=== PATIENT | female | born 1980 ===

== ENCOUNTER 2019-08-29 08:16 | Inpatient (IN) | payer BC ==
[~2019-08-29 08:16] MED LIST: Citric Acid/Sodium Citrate Solution 30 ML Cup PO ONE; Oxytocin/0.9 % Sodium Chloride 30 UNIT/500 ML BAG IV SCH; Sodium Chloride 0.9% 10 ML SDV IV PRN; Sodium Chloride 0.9% 10 ML Syringe FLUSH PRN; Sodium Chloride 0.9% 2.5 ML Syringe FLUSH PRN; ceFAZolin 2 GM in Premix Bag 1 BAG IV ONE
[2019-08-29] MEDS: Lactated Ringers 1,000 ML IV SCH ×3 (08:46→10:52)
[2019-08-29] MEDS ORDERED: Oxytocin 10 Units/1 ML SDV ONE (09:00)
[2019-08-29] MEDS ORDERED: Phenylephrine 1% 10 MG/ML SDV ONE (09:00)
[2019-08-29] MEDS ORDERED: Ondansetron 4 MG/2 ML SDV ONE (09:00)
[2019-08-29] MEDS ORDERED: Morphine PF 10 MG/10 ML SDV ONE (09:00)
[2019-08-29] MEDS ORDERED: ceFAZolin/Dextrose,Iso-Osmotic 2 GM/50 ML Duplex Bag IV ONE (09:00)
[2019-08-29] MEDS ORDERED: Ketorolac 30 MG/ML SDV ONE (09:06)
[2019-08-29] MEDS ORDERED: Citric Acid/Sodium Citrate Solution 30 ML Cup ONE (09:54)
--- NOTE | 2019-08-29 11:36 | PCM.PREANE ---
Preanesthetic Assessment - Anesthesia/Transfusion/Family Hx Anesthesia History: Prior Anesthesia Without Reaction Family History of Anesthesia Reaction: No Transfusion History: No Prior Transfusion(s) - Review of Systems General: No Symptoms Pulmonary: No Symptoms Cardiovascular: No Symptoms Gastrointestinal: No Symptoms Neurological: No Symptoms Other: Reports: None - Physical Assessment Height: 5 ft 8 in Weight: 77.111 kg ASA Class: 2 Mental Status: Alert & Oriented x3 Airway Class: Mallampati = 2 Dentition: Reports: Normal Dentition ROM/Head Extension: Full Lungs: Clear to Auscultation, Normal Respiratory Effort Cardiovascular: Regular Rate, Regular Rhythm - Lab Values: Laboratory Last Values WBC 8.12 K/uL (4.0-11.0) 08/28/19 16:15 RBC 4.19 M/uL (4.30-5.90) L 08/28/19 16:15 Hgb 11.5 g/dL (12.0-16.0) L 08/28/19 16:15 Hct 35.2 % (36.0-46.0) L 08/28/19 16:15 MCV 84.0 fL (80.0-98.0) 08/28/19 16:15 MCH 27.4 pg (27.0-32.0) 08/28/19 16:15 MCHC 32.7 g/dL (31.0-37.0) 08/28/19 16:15 RDW Std Deviation 40.5 fl (28.0-62.0) 08/28/19 16:15 RDW Coeff of Sonia 14 % (11.0-15.0) 08/28/19 16:15 Plt Count 157 K/uL (150-400) 08/28/19 16:15 MPV 11.40 fL (7.40-12.00) 08/28/19 16:15 Nucleated RBC % 0.0 /100WBC 08/28/19 16:15 Nucleated RBCs # 0 K/uL 08/28/19 16:15 Blood Type O POSITIVE 08/28/19 16:15 Antibody Screen POSITIVE 08/28/19 16:15 Prewarmed Antibody Srcn NEGATIVE 08/28/19 16:15 Antibody Identification Cancelled 08/28/19 16:15 Cold Antibody Screen POSITIVE 08/28/19 16:15 - Allergies Allergies/Adverse Reactions: Allergies Allergy/AdvReac Type Severity Reaction Status Date / Time No Known Allergies Allergy Verified 08/22/19 14:28 - Anesthesia Plan Pre-Op Medication Ordered: Antacids - Acknowledgements Anesthesia Type Planned: Spinal Pt an Appropriate Candidate for the Planned Anesthesia: Yes Alternatives and Risks of Anesthesia Discussed w Pt/Guardian: Yes Pt/Guardian Understands and Agrees with Anesthesia Plan: Yes Additional Comments: anes prob list: prior c/s Plan: spinal with intrathecal duramorph PreAnesthesia Questionnaire HEENT History: Reports: None Cardiovascular History: Reports: None Respiratory History: Reports: None Gastrointestinal History: Reports: None Genitourinary History: Reports: None 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: Musculoskeletal History: Reports: Fracture Other Musculoskeletal History: hx fx arm as a child Neurological History: Reports: None Psychiatric History: Reports: None Endocrine/Metabolic History: Reports: None Hematologic History: Reports: None Immunologic History: Reports: None Oncologic (Cancer) History: Reports: None Dermatologic History: Reports: None - Infectious Disease History Infectious Disease History: Reports: None - Past Surgical History Head Surgeries/Procedures: Reports: None HEENT Surgical History: Reports: None Cardiovascular Surgical History: Reports: None Respiratory Surgical History: Reports: None GI Surgical History: Reports: Hernia, Abdominal Female Surgical History: Reports: Section Endocrine Surgical History: Reports: None Neurological Surgical History: Reports: None Musculoskeletal Surgical History: Reports: None Oncologic Surgical History: Reports: None Dermatological Surgical History: Reports: None - SUBSTANCE USE Smoking Status *Q: Never Smoker Second Hand Smoke Exposure: No Recreational Drug Use History: No - HOME MEDS Home Medications: Home Meds . [No Known Home Meds] 08/22/19 [History] - CURRENT (IN HOUSE) MEDS Current Meds: Current Medications Lactated Ringer's (Ringers, Lactated) 1,000 mls @ 500 mls/hr IV BOLUS RAMEZ Last Admin: 08/29/19 10:52 Dose: 500 mls/hr Oxytocin/Sodium Chloride (Oxytocin 30 Unit/500 Ml-Ns) 30 unit in 500 mls @ 250 mls/hr IV TITRATE RAMEZ Sodium Chloride (Saline Flush) 10 ml FLUSH ASDIRECTED PRN PRN Reason: Keep Vein Open Sodium Chloride (Saline Flush) 2.5 ml FLUSH ASDIRECTED PRN PRN Reason: Keep Vein Open Sodium Chloride (Normal Saline) 10 ml IV ASDIRECTED PRN PRN Reason: IV Use Discontinued Medications Cefazolin Sodium/Dextrose (Ancef) Confirm Administered Dose 2 gm IV .STK-MED ONE Stop: 08/29/19 09:01 Citric Acid/Sodium Citrate (Bicitra Solution) 30 ml PO ONETIME ONE Stop: 08/28/19 15:47 Last Admin: 08/29/19 11:32 Dose: 30 ml Citric Acid/Sodium Citrate (Bicitra Solution) Confirm Administered Dose 30 ml .ROUTE .STK-MED ONE Stop: 08/29/19 09:55 Cefazolin Sodium/Dextrose 2 gm (/ Premix) 50 mls @ 100 mls/hr IV ONETIME ONE Stop: 08/28/19 16:15 Ketorolac Tromethamine (Toradol) Confirm Administered Dose 30 mg .ROUTE .STK- MED ONE Stop: 08/29/19 09:07 Morphine Sulfate (Duramorph Pf) Confirm Administered Dose 10 mg .ROUTE .STK-MED ONE Stop: 08/29/19 09:01 Ondansetron HCl (Zofran) Confirm Administered Dose 4 mg .ROUTE .STK-MED ONE Stop: 08/29/19 09:01 Oxytocin (Pitocin) Confirm Administered Dose 30 unit .ROUTE .STK-MED ONE Stop: 08/29/19 09:01 Phenylephrine HCl (Avery-Synephrine) Confirm Administered Dose 10 mg .ROUTE .STK- MED ONE Stop: 08/29/19 09:01
[2019-08-29] MEDS ORDERED: Octyl 2-Cyanoacrylate 1 Tube ONE (12:29)
[2019-08-29] MEDS ORDERED: Acetaminophen/oxyCODONE 325-5 MG Tab PO PRN (13:17)
[2019-08-29] MEDS ORDERED: Ondansetron 4 MG/2 ML SDV IVPUSH PRN (13:17)
[2019-08-29] MEDS ORDERED: Ibuprofen 800 MG Tab PO PRN (13:17)
[2019-08-29] MEDS ORDERED: diphenhydrAMINE 50 MG/ML SDV IVPUSH PRN (13:17)
[2019-08-29] MEDS ORDERED: Lanolin 100% Cream 7 GM Tube TOP PRN (13:17)
[2019-08-29] MEDS ORDERED: Bisacodyl 10 MG Supp RECTAL PRN (13:17)
--- NOTE | 2019-08-29 13:20 | PCM.LDHP ---
L&D History of Present Illness - General Date of Service: 08/29/19 Admit Problem/Dx: Patient Status Order with Admit Dx/Problem 08/28/19 15:46 Patient Status [ADT] Routine 08/29/19 13:17 Patient Status [ADT] Routine Admission Diagnosis/Problem Admission Diagnosis/Problem Source of Information: Patient History Limitations: Reports: No Limitations - History of Present Illness Improves with: Reports: None Worsens with: Reports: None Associated Symptoms: Reports: N - Related Data Allergies/Adverse Reactions: Allergies Allergy/AdvReac Type Severity Reaction Status Date / Time No Known Allergies Allergy Verified 08/22/19 14:28 Home Medications: Home Meds . 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: Reports: Fracture Other Musculoskeletal History: hx fx arm as a child Neurological History: Reports: None Psychiatric History: Reports: None Endocrine/Metabolic History: Reports: None Hematologic History: Reports: None Immunologic History: Reports: None Oncologic (Cancer) History: Reports: None Dermatologic History: Reports: None - Infectious Disease History Infectious Disease History: Reports: None - Past Surgical History Head Surgeries/Procedures: Reports: None HEENT Surgical History: Reports: None Cardiovascular Surgical History: Reports: None Respiratory Surgical History: Reports: None GI Surgical History: Reports: Hernia, Abdominal Female Surgical History: Reports: Section Endocrine Surgical History: Reports: None Neurological Surgical History: Reports: None Musculoskeletal Surgical History: Reports: None Oncologic Surgical History: Reports: None Dermatological Surgical History: Reports: None Social & Family History - Family History Cardiac: Reports: Hypertension Respiratory: Reports: None GI: Reports: None : Reports: None OBGYN: Reports: None Musculoskeletal: Reports: None Neurological: Reports: None Psychiatric: Reports: None Endocrine/Metabolic: Reports: None Hematologic: Reports: None Immunologic: Reports: None Dermatologic: Reports: None Oncologic: Reports: None - Tobacco Use Smoking Status *Q: Never Smoker Second Hand Smoke Exposure: No - Caffeine Use Caffeine Use: Reports: Coffee - Recreational Drug Use Recreational Drug Use: No Drug Use in Last 12 Months: No H&P Review of Systems - Review of Systems: Review Of Systems: See Below General: Reports: No Symptoms HEENT: Reports: No Symptoms Pulmonary: Reports: No Symptoms Cardiovascular: Reports: No Symptoms Gastrointestinal: Reports: No Symptoms Genitourinary: Reports: No Symptoms Musculoskeletal: Reports: No Symptoms Skin: Reports: No Symptoms Psychiatric: Reports: No Symptoms Neurological: Reports: No Symptoms Hematologic/Lymphatic: Reports: No Symptoms Immunologic: Reports: No Symptoms L&D Exam - Exam Exam: See Below - Vital Signs Weight: 77.111 kg - OB Specific Contraction Intensity: Mild Movement: Active Heart Tones: Present Presentation: Vertex - Exam General: Alert, Oriented HEENT: PERRLA, Conjunctiva Clear, EACs Clear, EOMI, Hearing Intact, Mucosa Moist & [place], Nares Patent, Normal Nasal Septum, Posterior Pharynx Clear, TMs Clear Neck: Supple, Trachea Midline Lungs: Clear to Auscultation, Normal Respiratory Effort Cardiovascular: Regular Rate, Regular Rhythm GI/Abdominal Exam: Normal Bowel Sounds, Soft, Non-Tender, No Organomegaly, No Distention, No Abnormal Bruit, No Mass, Pelvis Stable Rectal Exam: Normal Exam, Normal Rectal Tone Genitourinary: Normal external exam, Normal bimanual exam, Normal speculum exam Back Exam: Normal Inspection, Full Range of Motion Extremities: Normal Inspection, Normal Range of Motion, Non-Tender, No Pedal Edema, Normal Capillary Refill Skin: Warm, Dry, Intact Neurological: Cranial Nerves Intact, Reflexes Equal Bilateral Psychiatric: Alert, Normal Affect, Normal Mood - Patient Data Lab Results Last 24 hrs: Laboratory Results - last 24 hr 08/28/19 08/28/19 Range/Units 16:15 16:15 WBC 8.12 (4.0-11.0) K/uL RBC 4.19 L (4.30-5.90) M/uL Hgb 11.5 L (12.0-16.0) g/dL Hct 35.2 L (36.0-46.0) % MCV 84.0 (80.0-98.0) fL MCH 27.4 (27.0-32.0) pg MCHC 32.7 (31.0-37.0) g/dL RDW Std Deviation 40.5 (28.0-62.0) fl RDW Coeff of Sonia 14 (11.0-15.0) % Plt Count 157 (150-400) K/uL MPV 11.40 (7.40-12.00) fL Nucleated RBC % 0.0 /100WBC Nucleated RBCs # 0 K/uL Blood Type O POSITIVE Antibody Screen POSITIVE Prewarmed Antibody Srcn NEGATIVE Antibody Identification Cancelled Cold Antibody Screen POSITIVE Result Diagrams: 08/28/19 16:15 Problem List Initiated/Reviewed/Updated: Yes Orders Last 24hrs: Active Orders 24 hr Category Date Time Status Patient Status [ADT] Routine ADT 08/29/19 13:17 Ordered Ambulate [RC] PER UNIT ROUTINE Care 08/29/19 13:17 Ordered Antiembolic Devices [RC] PER UNIT ROUTINE Care 08/29/19 13:18 Ordered Communication Order [RC] PER UNIT ROUTINE Care 08/29/19 13:17 Ordered Communication Order [RC] PER UNIT ROUTINE Care 08/29/19 13:17 Ordered Communication Order [RC] Per Unit Routine Care 08/29/19 13:17 Ordered May Shower [RC] ASDIRECTED Care 08/29/19 13:17 Ordered Procedure Site Prep Instruct [RC] ASDIRECTED Care 08/28/19 15:46 Active RT Incentive Spirometry [RC] Q2HWA Care 08/29/19 13:17 Ordered Up ad Nikki [RC] ASDIRECTED Care 08/28/19 15:46 Active Vital Signs [RC] PER UNIT ROUTINE Care 08/28/19 15:46 Active Vital Signs [RC] PER UNIT ROUTINE Care 08/29/19 13:17 Ordered HEMOGLOBIN/HEMATOCRIT,HH [HEME] Timed Lab 08/30/19 05:11 Ordered Acetaminophen/oxyCODONE [Percocet 325-5 MG] Med 08/29/19 13:17 Ordered 1 tab PO Q4H PRN Acetaminophen/oxyCODONE [Percocet 325-5 MG] Med 08/29/19 13:17 Ordered 2 tab PO Q4H PRN Bisacodyl [Dulcolax] Med 08/29/19 13:17 Ordered 10 mg RECTAL ONETIME PRN Docusate Sodium [Colace] Med 08/29/19 21:00 Ordered 100 mg PO BID Ibuprofen [Motrin] Med 08/29/19 13:17 Ordered 800 mg PO Q8H PRN Ketorolac [Toradol] Med 08/29/19 13:30 Ordered 30 mg IVPUSH Q6H Lactated Ringers @ 125 MLS/HR(1000ml) Med 08/29/19 13:30 Ordered Lactated Ringers [Ringers, Lactated] 1,000 ml IV ASDIRECTED Lactated Ringers [Ringers, Lactated] 1,000 ml Med 08/28/19 16:00 Active IV BOLUS Lanolin [Lansinoh HPA] Med 08/29/19 13:17 Ordered See Dose Instructions TOP ASDIRECTED PRN Ondansetron [Zofran] Med 08/29/19 13:17 Ordered 4 mg IVPUSH Q4H PRN Oxytocin/0.9 % Sodium Chloride [Oxytocin 30 Unit/500 ML Med 08/28/19 16:00 Active -NS] 30 unit in 500 ml IV TITRATE Sodium Chloride 0.9% [Normal Saline] Med 08/28/19 15:46 Active 10 ml IV ASDIRECTED PRN Sodium Chloride 0.9% [Saline Flush] Med 08/28/19 15:46 Active 10 ml FLUSH ASDIRECTED PRN Sodium Chloride 0.9% [Saline Flush] Med 08/28/19 15:46 Active 2.5 ml FLUSH ASDIRECTED PRN diphenhydrAMINE [Benadryl] Med 08/29/19 13:17 Ordered 25 mg IVPUSH Q6H PRN Assess Lochia [WOMSER] Per Unit Routine Ot 08/29/19 13:17 Ordered Assess Uterine Involution [WOMSER] Per Unit Routine Oth 08/29/19 13:17 Ordered Breast Pump [WOMSER] Per Unit Routine Oth 08/29/19 13:17 Ordered Peripheral IV Discontinue [OM.PC] Routine Oth 08/29/19 13:17 Ordered Peripheral IV Insertion Adult [OM.PC] Routine Oth 08/28/19 15:46 Ordered Schedule Procedure [COMM] Per Unit Routine Oth 08/28/19 15:46 Ordered Sequential Compression Device [OM.PC] Per Unit Routine Ot 08/29/19 13:17 Ordered Resuscitation Status Routine Resus Stat 08/28/19 15:46 Ordered Medication Orders Lactated Ringer's (Ringers, Lactated) 1,000 mls @ 500 mls/hr IV BOLUS RAMEZ Last Admin: 08/29/19 10:52 Dose: 500 mls/hr Infusion: 08/29/19 10:38 Dose: 999 mls/hr Admin: 08/29/19 09:37 Dose: 999 mls/hr Infusion: 08/29/19 09:37 Dose: 999 mls/hr Admin: 08/29/19 08:46 Dose: 999 mls/hr Oxytocin/Sodium Chloride (Oxytocin 30 Unit/500 Ml-Ns) 30 unit in 500 mls @ 250 mls/hr IV TITRATE RAMEZ Sodium Chloride (Saline Flush) 10 ml FLUSH ASDIRECTED PRN PRN Reason: Keep Vein Open Sodium Chloride (Saline Flush) 2.5 ml FLUSH ASDIRECTED PRN PRN Reason: Keep Vein Open Sodium Chloride (Normal Saline) 10 ml IV ASDIRECTED PRN PRN Reason: IV Use
--- NOTE | 2019-08-29 13:21 | PCM.OPNOTE ---
- General Post-Op/Procedure Note Date of Surgery/Procedure: 08/29/19 Operative Procedure(s): Repeat C/section. Pre Op Diagnosis: [id number] previous C/section. Post-Op Diagnosis: Same Anesthesia Technique: Spinal Primary Surgeon: Ned Daniel EBL in mLs: 650 Complications: None Condition: Good
[2019-08-29] MEDS: Ketorolac 30 MG/ML SDV IVPUSH SCH ×2 (13:30→19:57)
[2019-08-29] MEDS ORDERED: Lactated Ringers 1,000 ML IV SCH (13:30)
--- NOTE | 2019-08-29 14:00 | OR ---
SURGEON: Ned Daniel MD DATE OF PROCEDURE: 08/29/2019 PREOPERATIVE DIAGNOSES: Intrauterine at 38 weeks, advanced maternal age, previous section, low lying placenta previa. POSTOPERATIVE DIAGNOSES: Intrauterine at 38 weeks, advanced maternal age, previous section, low lying placenta previa. OPERATION PERFORMED: Repeat low-transverse section. PRIMARY SURGEON: Ned Daniel MD. 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 ANESTHESIA: Spinal. ESTIMATED BLOOD LOSS: 650 mL. COMPLICATIONS: None. FINDINGS: A viable female fetus. score reported to be 8 and 9. Normal uterus, tubes, and ovaries. INDICATIONS: The patient is a 39-year-old. She had initially marginal placenta previa in the beginning of the . However, it is moved to very low-lying placenta previa at 34-35 weeks by ultrasound. Because of advanced maternal age, because of previous section, and because of the location of placenta, a decision was made to repeat her section. PROCEDURE IN DETAIL: The patient was brought to the OR, properly identified. After adequate level of spinal anesthesia with a Ferguson catheter in the bladder, the patient was prepped and draped in sterile fashion as usual. A low transverse Pfannenstiel skin incision was done. Golden's fascia was opened in the direction of the incision. Two recti muscles , peritoneal cavity was entered. Bladder flap was raised in the usual manner pushing the bladder away from the lower uterine segment. Low transverse uterine incision was done and extended manually with hand, and fetus was in the vertex position, delivered without any problem. It cried immediately. score reported to be 8 and 9. The weight is not available. The placenta delivered spontaneous, complete, and intact. Repair of the lower uterine segment done with 2-0 Vicryl continuous interlocking in 2 layers. Reperitonealization done with 3-0 Vicryl continuous, and then, the peritoneal cavity was closed with 3-0 Vicryl continuous after evacuation of all blood and blood clot. The rectus fascia was closed with #1 PDS continuous and Golden's fascia with 3-0 Vicryl continuous, the skin closed with 3-0 in subcuticular fashion and Dermabond. Instrument and sponge counts were correct. The patient tolerated the procedure well, went to recovery room in stable general condition. AGUSTIN / FAMILIA /[id number]
--- NOTE | 2019-08-29 14:31 | PCM.POSTAN ---
POST ANESTHESIA ASSESSMENT - MENTAL STATUS Mental Status: Alert, Oriented - VITAL SIGNS Vital Signs: Last Vital Signs Temp 97.5 F 08/29/19 13:32 Pulse 66 08/29/19 14:02 Resp 13 08/29/19 14:02 BP 98/64 08/29/19 14:02 Pulse Ox 96 08/29/19 14:02 - RESPIRATORY Respiratory Status: Respiratory Rate WNL, Airway Patent, O2 Saturation Stable - CARDIOVASCULAR CV Status: Pulse Rate WNL, Blood Pressure Stable - GASTROINTESTINAL GI Status: No Symptoms - POST OP HYDRATION Hydration Status: Adequate & Stable
[2019-08-29] MEDS: Docusate Sodium 100 MG Cap PO SCH (20:06)
[2019-08-30] MEDS: Ketorolac 30 MG/ML SDV IVPUSH SCH ×3 (01:52→16:14)
--- NOTE | 2019-08-30 07:14 | PCM48HPAN ---
Post Anesthesia Note - EVALUATION WITHIN 48HRS OF ANESTHETIC Vital Signs in Normal Range: Yes Patient Participated in Evaluation: Yes Respiratory Function Stable: Yes Airway Patent: Yes Cardiovascular Function Stable: Yes Hydration Status Stable: Yes Pain Control Satisfactory: Yes Nausea and Vomiting Control Satisfactory: Yes Mental Status Recovered: Yes Vital Signs: Last Vital Signs Temp 98.7 F 08/30/19 04:15 Pulse 77 08/30/19 06:00 Resp 17 08/30/19 06:00 BP 100/65 08/30/19 06:00 Pulse Ox 95 08/30/19 06:00
--- NOTE | 2019-08-30 08:55 | PCM.PNPP ---
- General Info Date of Service: 08/30/19 Functional Status: Reports: Pain Controlled - Review of Systems General: Reports: No Symptoms HEENT: Reports: No Symptoms Pulmonary: Reports: No Symptoms Cardiovascular: Reports: No Symptoms Gastrointestinal: Reports: No Symptoms Genitourinary: Reports: No Symptoms Musculoskeletal: Reports: No Symptoms Skin: Reports: No Symptoms Neurological: Reports: No Symptoms Psychiatric: Reports: No Symptoms - General Info Date of Service: 08/30/19 - Patient Data Vital Signs - Most Recent: Last Vital Signs Temp 37.1 C 08/30/19 04:15 Pulse 77 08/30/19 06:00 Resp 17 08/30/19 06:00 BP 100/65 08/30/19 06:00 Pulse Ox 95 08/30/19 06:00 Weight - Most Recent: 77.111 kg I&O - Last 24 Hours: Intake & Output 08/29/19 08/30/19 08/30/19 22:59 06:59 14:59 Output Total 150 1400 Balance -150 -1400 Lab Results - Last 24 Hours: Laboratory Results - last 24 hr 08/30/19 Range/Units 05:39 Hgb 10.5 L (12.0-16.0) g/dL Hct 32.7 L (36.0-46.0) % Med Orders - Current: Current Medications Bisacodyl (Dulcolax) 10 mg RECTAL ONETIME PRN PRN Reason: Constipation Diphenhydramine HCl (Benadryl) 25 mg IVPUSH Q6H PRN PRN Reason: Itching or Nausea Docusate Sodium (Colace) 100 mg PO BID [facility] Last Admin: 08/29/19 20:06 Dose: 100 mg Emollient Ointment (Lansinoh Hpa) 0 gm TOP ASDIRECTED PRN PRN Reason: Sore Nipples Lactated Ringer's (Ringers, Lactated) 1,000 mls @ 500 mls/hr IV BOLUS [facility] Last Admin: 08/29/19 10:52 Dose: 500 mls/hr Oxytocin/Sodium Chloride (Oxytocin 30 Unit/500 Ml-Ns) 30 unit in 500 mls @ 250 mls/hr IV TITRATE RAMEZ Lactated Ringer's (Ringers, Lactated) 1,000 mls @ 125 mls/hr IV ASDIRECTED [facility] Ibuprofen (Motrin) 800 mg PO Q8H PRN PRN Reason: mild pain or fever Ketorolac Tromethamine (Toradol) 30 mg IVPUSH Q6H RAMEZ Stop: 08/30/19 13:31 Last Admin: 08/30/19 07:26 Dose: 30 mg Ondansetron HCl (Zofran) 4 mg IVPUSH Q4H PRN PRN Reason: Nausea/Vomiting Oxycodone/Acetaminophen (Percocet 325-5 Mg) 1 tab PO Q4H PRN PRN Reason: Pain (moderate 4-6) Oxycodone/Acetaminophen (Percocet 325-5 Mg) 2 tab PO Q4H PRN PRN Reason: Pain (moderate 4-6) Sodium Chloride (Saline Flush) 10 ml FLUSH ASDIRECTED PRN PRN Reason: Keep Vein Open Sodium Chloride (Saline Flush) 2.5 ml FLUSH ASDIRECTED PRN PRN Reason: Keep Vein Open Sodium Chloride (Normal Saline) 10 ml IV ASDIRECTED PRN PRN Reason: IV Use Discontinued Medications Cefazolin Sodium/Dextrose (Ancef) Confirm Administered Dose 2 gm IV .STK-MED ONE Stop: 08/29/19 09:01 Citric Acid/Sodium Citrate (Bicitra Solution) 30 ml PO ONETIME ONE Stop: 08/28/19 15:47 Last Admin: 08/29/19 11:32 Dose: 30 ml Citric Acid/Sodium Citrate (Bicitra Solution) Confirm Administered Dose 30 ml .ROUTE .STK-MED ONE Stop: 08/29/19 09:55 Last Admin: 08/29/19 21:27 Dose: Not Given Cefazolin Sodium/Dextrose 2 gm (/ Premix) 50 mls @ 100 mls/hr IV ONETIME ONE Stop: 08/28/19 16:15 Last Admin: 08/29/19 21:27 Dose: Not Given Ketorolac Tromethamine (Toradol) Confirm Administered Dose 30 mg .ROUTE .STK- MED ONE Stop: 08/29/19 09:07 Morphine Sulfate (Duramorph Pf) Confirm Administered Dose 10 mg .ROUTE .STK-MED ONE Stop: 08/29/19 09:01 Octyl Cyanoacrylate (Dermabond Advance) Confirm Administered Dose 1 applic .ROUTE .STK-MED ONE Stop: 08/29/19 12:30 Last Admin: 08/29/19 21:28 Dose: Not Given Ondansetron HCl (Zofran) Confirm Administered Dose 4 mg .ROUTE .STK-MED ONE Stop: 08/29/19 09:01 Oxytocin (Pitocin) Confirm Administered Dose 30 unit .ROUTE .STK-MED ONE Stop: 08/29/19 09:01 Phenylephrine HCl (Avery-Synephrine) Confirm Administered Dose 10 mg .ROUTE .STK- MED ONE Stop: 08/29/19 09:01 - Interaction Infant Disposition, : [place] in Room with Family Interaction: Holding Infant Infant Feeding: Attempted ; Nursed Fair/Poor - Recovery Exam Fundal Tone: Firm Fundal Level: 2 Fingerbreadths Below Umbilicus Fundal Placement: Midline Lochia Amount: Small Lochia Color: Rubra/Red Perineum Description: Intact, Minimal Bruising/Swelling Episiotomy/Laceration: None Bladder Status: Indwelling Catheter in Place Urinary Elimination: Indwelling Catheter - Exam General: Alert, Oriented HEENT: Pupils Equal Neck: Supple Lungs: Clear to Auscultation, Normal Respiratory Effort Cardiovascular: Regular Rate, Regular Rhythm GI/Abdominal Exam: Normal Bowel Sounds, Soft, Non-Tender, No Organomegaly, No Distention, No Abnormal Bruit, No Mass, Pelvis Stable Extremities: Normal Inspection, Normal Range of Motion, Non-Tender, No Pedal Edema, Normal Capillary Refill Skin: Warm, Dry, Intact Wound/Incisions: Healing Well Neurological: No New Focal Deficit Psy/Mental Status: Alert, Normal Affect, Normal Mood - Problem List Review Problem List Initiated/Reviewed/Updated: Yes - My Orders Last 24 Hours: My Active Orders 08/29/19 13:17 Patient Status [ADT] Routine Ambulate [RC] PER UNIT ROUTINE Communication Order [RC] PER UNIT ROUTINE Communication Order [RC] PER UNIT ROUTINE Communication Order [RC] Per Unit Routine May Shower [RC] ASDIRECTED RT Incentive Spirometry [RC] Q2HWA Acetaminophen/oxyCODONE [Percocet 325-5 MG] 1 tab PO Q4H PRN Acetaminophen/oxyCODONE [Percocet 325-5 MG] 2 tab PO Q4H PRN Bisacodyl [Dulcolax] 10 mg RECTAL ONETIME PRN Ibuprofen [Motrin] 800 mg PO Q8H PRN Lanolin [Lansinoh HPA] See Dose Instructions TOP ASDIRECTED PRN Ondansetron [Zofran] 4 mg IVPUSH Q4H PRN diphenhydrAMINE [Benadryl] 25 mg IVPUSH Q6H PRN Assess Lochia [WOMSER] Per Unit Routine Assess Uterine Involution [WOMSER] Per Unit Routine Breast Pump [WOMSER] Per Unit Routine Peripheral IV Discontinue [OM.PC] Routine Sequential Compression Device [OM.PC] Per Unit Routine 08/29/19 13:18 Antiembolic Devices [RC] PER UNIT ROUTINE 08/29/19 13:30 Ketorolac [Toradol] 30 mg IVPUSH Q6H Lactated Ringers [Ringers, Lactated] 1,000 ml IV ASDIRECTED 08/29/19 21:00 Docusate Sodium [Colace] 100 mg PO BID - Assessment Assessment:: status post repeat section [id number] her pins under control she is ambulatory on she is on regular diet normal lochia and voiding without any problem. - Plan Plan:: I am planning to discharge the patient tomorrow
[2019-08-30] MEDS: Acetaminophen/oxyCODONE 325-5 MG Tab PO PRN (18:20)
[2019-08-30] MEDS: Docusate Sodium 100 MG Cap PO SCH ×2 (19:21→20:53)
[2019-08-31] MEDS: Acetaminophen/oxyCODONE 325-5 MG Tab PO PRN ×3 (01:29→11:32)
[2019-08-31] MEDS: Docusate Sodium 100 MG Cap PO SCH (10:06)
--- NOTE | 2019-08-31 10:13 | PCM.DCSUM1 ---
Discharge Summary - Hospital Course Diagnosis: Stroke: No - Discharge Data Discharge Date: 08/31/19 Discharge Disposition: Home, Self-Care 01 Condition: Good - Referral to Home Health Primary Care Physician: PCP None - Patient Summary/Data Operative Procedure(s) Performed: Repeat C/section. - Patient Instructions Diet: Usual Diet as Tolerated Activity: As Tolerated Driving: Do Not Drive Showering/Bathing: May Shower Wound/Incision Care: Keep Operative Site/Wound Site Clean and Dry Notify Provider of: Fever, Increased Pain, Nausea and/or Vomiting - Discharge Plan Home Medications: Home Meds . [No Known Home Meds] 08/22/19 [History] Patient Handouts: Delivery, Care After, Home Care Instructions for Mom Referrals: Ned Daniel MD [Physician] - 09/04/19 3:00 pm Mari Alvarenga CNM [Mid-] - 10/14/19 1:30 pm - Discharge Summary/Plan Comment DC Time >30 min.: Yes - General Info Date of Service: 08/31/19 Functional Status: Reports: Pain Controlled - Review of Systems General: Reports: No Symptoms HEENT: Reports: No Symptoms Pulmonary: Reports: No Symptoms Cardiovascular: Reports: No Symptoms Gastrointestinal: Reports: No Symptoms Genitourinary: Reports: No Symptoms Musculoskeletal: Reports: No Symptoms Skin: Reports: No Symptoms Neurological: Reports: No Symptoms Psychiatric: Reports: No Symptoms - Patient Data Vitals - Most Recent: Last Vital Signs Temp 36.7 C 08/31/19 07:35 Pulse 74 08/31/19 07:35 Resp 16 08/31/19 07:35 BP 98/61 08/31/19 07:35 Pulse Ox 100 08/31/19 07:35 Weight - Most Recent: 77.111 kg Med Orders - Current: Current Medications Bisacodyl (Dulcolax) 10 mg RECTAL ONETIME PRN PRN Reason: Constipation Diphenhydramine HCl (Benadryl) 25 mg IVPUSH Q6H PRN PRN Reason: Itching or Nausea Docusate Sodium (Colace) 100 mg PO BID RAMEZ Last Admin: 08/31/19 10:06 Dose: 100 mg Emollient Ointment (Lansinoh Hpa) 0 gm TOP ASDIRECTED PRN PRN Reason: Sore Nipples Lactated Ringer's (Ringers, Lactated) 1,000 mls @ 500 mls/hr IV BOLUS RAMEZ Last Admin: 08/29/19 10:52 Dose: 500 mls/hr Oxytocin/Sodium Chloride (Oxytocin 30 Unit/500 Ml-Ns) 30 unit in 500 mls @ 250 mls/hr IV TITRATE RAMEZ Lactated Ringer's (Ringers, Lactated) 1,000 mls @ 125 mls/hr IV ASDIRECTED RAMEZ Ibuprofen (Motrin) 800 mg PO Q8H PRN PRN Reason: mild pain or fever Last Admin: 08/31/19 01:29 Dose: 800 mg Ondansetron HCl (Zofran) 4 mg IVPUSH Q4H PRN PRN Reason: Nausea/Vomiting Oxycodone/Acetaminophen (Percocet 325-5 Mg) 1 tab PO Q4H PRN PRN Reason: Pain (moderate 4-6) Last Admin: 08/31/19 06:02 Dose: 1 tab Oxycodone/Acetaminophen (Percocet 325-5 Mg) 2 tab PO Q4H PRN PRN Reason: Pain (moderate 4-6) Sodium Chloride (Saline Flush) 10 ml FLUSH ASDIRECTED PRN PRN Reason: Keep Vein Open Sodium Chloride (Saline Flush) 2.5 ml FLUSH ASDIRECTED PRN PRN Reason: Keep Vein Open Sodium Chloride (Normal Saline) 10 ml IV ASDIRECTED PRN PRN Reason: IV Use Discontinued Medications Cefazolin Sodium/Dextrose (Ancef) Confirm Administered Dose 2 gm IV .STK-MED ONE Stop: 08/29/19 09:01 Citric Acid/Sodium Citrate (Bicitra Solution) 30 ml PO ONETIME ONE Stop: 08/28/19 15:47 Last Admin: 08/29/19 11:32 Dose: 30 ml Citric Acid/Sodium Citrate (Bicitra Solution) Confirm Administered Dose 30 ml .ROUTE .STK-MED ONE Stop: 08/29/19 09:55 Last Admin: 08/29/19 21:27 Dose: Not Given Cefazolin Sodium/Dextrose 2 gm (/ Premix) 50 mls @ 100 mls/hr IV ONETIME ONE Stop: 08/28/19 16:15 Last Admin: 08/29/19 21:27 Dose: Not Given Ketorolac Tromethamine (Toradol) Confirm Administered Dose 30 mg .ROUTE .STK- MED ONE Stop: 08/29/19 09:07 Ketorolac Tromethamine (Toradol) 30 mg IVPUSH Q6H RAMEZ Stop: 08/30/19 13:31 Last Admin: 08/30/19 16:14 Dose: 30 mg Morphine Sulfate (Duramorph Pf) Confirm Administered Dose 10 mg .ROUTE .STK-MED ONE Stop: 08/29/19 09:01 Octyl Cyanoacrylate (Dermabond Advance) Confirm Administered Dose 1 applic .ROUTE .STK-MED ONE Stop: 08/29/19 12:30 Last Admin: 08/29/19 21:28 Dose: Not Given Ondansetron HCl (Zofran) Confirm Administered Dose 4 mg .ROUTE .STK-MED ONE Stop: 08/29/19 09:01 Oxytocin (Pitocin) Confirm Administered Dose 30 unit .ROUTE .STK-MED ONE Stop: 08/29/19 09:01 Phenylephrine HCl (Avery-Synephrine) Confirm Administered Dose 10 mg .ROUTE .STK- MED ONE Stop: 08/29/19 09:01 - Exam General: Reports: Alert, Oriented HEENT: Reports: Pupils Equal, Pupils Reactive, EOMI, Mucous Membr. Moist/[place] Neck: Reports: Supple Lungs: Reports: Clear to Auscultation, Normal Respiratory Effort Cardiovascular: Reports: Regular Rate, Regular Rhythm GI/Abdominal Exam: Normal Bowel Sounds, Soft, Non-Tender, No Organomegaly, No Distention, No Abnormal Bruit, No Mass, Pelvis Stable (Female) Exam: Normal External Exam, Normal Speculum Exam, Normal Bimanual Exam Rectal (Female) Exam: Normal Exam, Normal Rectal Tone Back Exam: Reports: Normal Inspection, Full Range of Motion Extremities: Normal Inspection, Normal Range of Motion, Non-Tender, No Pedal Edema, Normal Capillary Refill Skin: Reports: Warm, Dry, Intact Wound/Incisions: Reports: Healing Well Neurological: Reports: No New Focal Deficit Psy/Mental Status: Reports: Alert, Normal Affect, Normal Mood
== END 2019-08-31 12:25 | disposition home or self-care (01) | DRG 540 ==
LOC: MW.OB 08:16
PROVIDERS: ADMIT Obstetrics & Gynecology; ATTEND Obstetrics & Gynecology
PROC: 10D00Z1 Extraction of Products of Conception, Low, Open Approach (ICD-10-PCS; principal; 2019-08-29)
DX: O34.211 Maternal care for low transverse scar from previous cesarean delivery (principal); O44.43 Low lying placenta NOS or without hemorrhage, third trimester; Z3A.38 38 weeks gestation of pregnancy; Z37.0 Single live birth
CPT/HCPCS: 36415; 51702; 59025; 85014; 85018; 85027; 86156; 86850; 86900; 86901; A9270-GY; J0690; J1885; J2270; J2370; J2405; J2590; J7120